=== PATIENT | female | born 1930 | race Caucasian/White ===

== ENCOUNTER 2016-07-02 02:24 | Observation (INO) | payer OTHER ==
[~2016-07-02] VITALS: Ht 149.9 cm; Wt 45.5 kg
[~2016-07-02 02:24] MED LIST: ACETAMINOPHEN325 M1 PO; ADULT LOW DOSE81 M1 PO; ALPRAZOLAM0.25 M2 PO; ALPRAZOLAM0.5 MG PO; ALPRAZOLAM1 MG PO; ARICEPT10 MG PO; ASPIR-LOW81 MG PO; Aspirin E.C. PO; CELEBREX200 MG; CELEBREX200 MG PO; CELEXA10 MG PO; DETROL LA4 MG; DETROL LA4 MG PO; LISINOPRIL 5 MG TABL; LISINOPRIL5 MG PO; LOPRESSOR25 MG PO; Maxipime IV; NIFEDIPINE ER30 MG PO; OXYCODONE-ACET1 EACH; PERCOCET 5/31 TABLET PO; SINEMET 25-1001 EACH PO; SYSTANE 0.3-0.1 EACH BOTH EYES; Tylenol Regular Stre PO; ULTRAM50 MG PO; Ultram PO; Xanax PO; Zestril,Prinivil PO
[2016-07-02 03:16] LABS: EOSINOPHIL COUNT 0.1 K/uL (0-0.3); HEMATOCRIT 38.6 % (36.0-46.0); IMMATURE GRANULOCYTE (%) 0.5 % (0.0-0.7); INSTRUMENT ABS NEUTROPHIL CT 2.6 K/uL; LYMPHOCYTE COUNT 1.1 K/uL (1.0-2.8); MCH 29.6 PG (29.0-34.0); MCHC 32.1 G/DL (30.0-36.0); MCV 92.1 FL (83-99); MEAN PLAT.VOLUME 12.7 uM^3 (9.5-12.4); MONOCYTE (%) 5.2 % (3-12); MONOCYTE COUNT 0.2 K/uL (0-0.8); NEUTROPHIL (%) 63.8 % (45-76); NEUTROPHIL COUNT 2.6 K/uL (1.8-6.4); PLATELET COUNT 141 K/uL (156-360); RBC DIS.WIDTH-CV 14.7 % (11.8-14.6); RBC DIS.WIDTH-SD 50.3 % (39-53); RED BLOOD COUNT 4.19 M/uL (3.80-5.20)
[2016-07-02 03:27] LABS: CHLORIDE 101 mEq/L (99-109); SODIUM 140 mEq/L (136-147)
[2016-07-02 03:29] LABS: GLUCOSE 86 mg/dL (70-99)
[2016-07-02 03:30] LABS: ANION GAP 10 MEQ/L (2-14)
[2016-07-02 03:33] LABS: GFR ESTIMATE (CALCULATED) > 59 mL/min/
[2016-07-02 03:34] LABS: UREA NITROGEN (BUN) 35 mg/dL (9-23)
[2016-07-02 03:37] LABS: TROP-I INTERPRETATION NEGATIVE; TROPONIN-I 0.01 ng/mL (0.0-0.30)
[2016-07-02 04:39] LABS: ADD MIUA? NO; BILIRUBIN NEGATIVE; BLOOD NEGATIVE; COLOR YELLOW ((YELLOW)); GLUCOSE (STRIP) NEGATIVE; KETONES 5; LEUKOCYTES NEGATIVE; NITRITE NEGATIVE; PROTEIN (STRIP) NEGATIVE; SPECIFIC GRAVITY 1.017 (1.000-1.030); UCUL ADDED? NO; UROBILINOGEN 0.2 MG/DL (0.2-1.0)
[2016-07-02] MEDS ORDERED: MELATONIN5 M4 PO (05:35)
[2016-07-02] MEDS ORDERED: VITAMIN D-32000 UNI2 PO (05:36)
[2016-07-02] MEDS ORDERED: METHENAMINE HIPP1 G1 PO (05:37)
[2016-07-02 08:10] VITALS: BP 152/109
[2016-07-02 11:43] VITALS: BP 136/68
[2016-07-02 15:59] VITALS: BP 135/61
== END 2016-07-02 17:04 ==
LOC: EME → EDBD 02:24 → EME 02:24 → EDOF 06:19 → 5WEST 07:31
PROVIDERS: Emergency Medicine
DX: R00.1 Bradycardia, unspecified (principal); I48.0 Paroxysmal atrial fibrillation; S00.83XA Contusion of other part of head, initial encounter; W19.XXXA Unspecified fall, initial encounter; Y92.129 Unspecified place in nursing home as the place of occurrence of the external cause; F03.90 Unspecified dementia, unspecified severity, without behavioral disturbance, psychotic disturbance, mood disturbance, and anxiety; I10 Essential (primary) hypertension; I25.10 Atherosclerotic heart disease of native coronary artery without angina pectoris; R94.31 Abnormal electrocardiogram [ECG] [EKG]; F41.9 Anxiety disorder, unspecified
CPT/HCPCS: 70450; 71010; 73080; 73560; 80048; 81003; 84484; 85025; 93005; 99281; 99285; G0378; J7030

== ENCOUNTER 2016-07-09 11:51 | Inpatient (IN) | payer OTHER ==
[~2016-07-09] VITALS: Ht 162.6 cm; Wt 66.1 kg
[2016-07-09] VITALS (9 sets, daily range): BP systolic 93–132; BP diastolic 55–87
[~2016-07-09 11:51] MED LIST changes: +MELATONIN5 M4 PO; +METHENAMINE HIPP1 G1 PO; +VITAMIN D-32000 UNI2 PO
[2016-07-09 12:35] LABS: MCH 29.8 PG (29.0-34.0); MCHC 31.8 G/DL (30.0-36.0); MCV 93.6 FL (83-99); MEAN PLAT.VOLUME 11.9 uM^3 (9.5-12.4); RBC DIS.WIDTH-CV 15.6 % (11.8-14.6)
[2016-07-09 12:39] LABS: CHLORIDE 107 mEq/L (99-109); POTASSIUM 3.8 mEq/L (3.7-5.4); SODIUM 144 mEq/L (136-147)
[2016-07-09 12:40] LABS: GLUCOSE 163 mg/dL (70-99)
[2016-07-09 12:42] LABS: INTER. NORMALIZED RATIO 1.1; PROTHROMBIN TIME 10.9 (9.2-11.2); PTT 22.1 (25-32)
[2016-07-09 12:42] LABS: ANION GAP 15 MEQ/L (2-14)
[2016-07-09 12:44] LABS: GFR ESTIMATE (CALCULATED) 56 mL/min/
[2016-07-09 12:45] LABS: UREA NITROGEN (BUN) 86 mg/dL (9-23)
[2016-07-09 12:51] LABS: TROP-I INTERPRETATION NEGATIVE; TROPONIN-I < 0.01 ng/mL (0.0-0.30)
[2016-07-09 12:57] LABS: PLATELET COUNT 190 K/uL (156-360); RED BLOOD COUNT 2.35 M/uL (3.80-5.20); WHITE BLOOD COUNT 9.3 K/uL (4.1-10.2)
[2016-07-09] MEDS ORDERED: EUCERIN CREME120 GM TP (13:51)
[2016-07-09] MEDS ORDERED: CELEXA10 MG PO (14:30)
[2016-07-09] MEDS ORDERED: CYANOCOBALAM1000 MCG PO (14:33)
[2016-07-09] MEDS ORDERED: CYANOCOBAL1000 MCG/2 IM (14:34)
[2016-07-09] MEDS ORDERED: PROCARDIA XL30 MG PO (14:36)
[2016-07-09] MEDS ORDERED: ARTIFICIAL TEAR15 M6 BOTH EYES (14:43)
[2016-07-09] MEDS ORDERED: TRAMADOL HCL50 MG PO (14:45)
[2016-07-10] VITALS (13 sets, daily range): BP systolic 105–155; BP diastolic 53–67
[2016-07-10 00:23] LABS: HEMATOCRIT 25.1 % (36.0-46.0); MCV 91.3 FL (83-99)
[2016-07-10 00:42] LABS: TROP-I INTERPRETATION NEGATIVE; TROPONIN-I < 0.01 ng/mL (0.0-0.30)
[2016-07-10 06:01] LABS: HEMATOCRIT 22.9 % (36.0-46.0); MCH 30.1 PG (29.0-34.0); MCHC 32.8 G/DL (30.0-36.0); MEAN PLAT.VOLUME 11.9 uM^3 (9.5-12.4); PLATELET COUNT 152 K/uL (156-360); RBC DIS.WIDTH-CV 15.5 % (11.8-14.6); RBC DIS.WIDTH-SD 51.3 % (39-53); RED BLOOD COUNT 2.49 M/uL (3.80-5.20); WHITE BLOOD COUNT 7.1 K/uL (4.1-10.2)
[2016-07-10 06:28] LABS: ALKALINE PHOSPHATASE 71 IU/L (3-129); ANION GAP 6 MEQ/L (2-14); ANION GAP 8 MEQ/L (2-14); CHLORIDE 110 MEQ/L (99-109); GFR ESTIMATE (CALCULATED) > 59 mL/min/; POTASSIUM 3.9 MEQ/L (3.7-5.4); SAMPLE HEMOLYSIS CHECK 0; SAMPLE HEMOLYSIS CHECK 2; SAMPLE ICTERIC CHECK 0; SAMPLE LIPEMIA CHECK 0; SODIUM 144 MEQ/L (136-147); SODIUM 145 MEQ/L (136-147); TOTAL BILIRUBIN 0.5 MG/DL (0.0-1.0); UREA NITROGEN (BUN) 60 mg/dL (9-23)
[2016-07-10 06:35] LABS: TROP-I INTERPRETATION NEGATIVE; TROPONIN-I < 0.01 ng/mL (0.0-0.30)
[2016-07-10 06:39] LABS: GLUCOSE 90 mg/dL (70-99)
[2016-07-10 06:40] LABS: GLUCOSE 88 mg/dL (70-99); POTASSIUM 4.4 MEQ/L (3.7-5.4)
[2016-07-10 08:26] LABS: HEMATOCRIT 23.4 % (36.0-46.0); MCV 92.1 FL (83-99)
[2016-07-10 13:06] LABS: HEMATOCRIT 30.3 % (36.0-46.0); MCV 89.4 FL (83-99)
[2016-07-10 19:18] LABS: HEMATOCRIT 30.2 % (36.0-46.0); MCV 85.6 FL (83-99)
[2016-07-11] VITALS (20 sets, daily range): BP systolic 94–138; BP diastolic 51–94
[2016-07-11 04:08] LABS: CHLORIDE 111 mEq/L (99-109); SODIUM 142 mEq/L (136-147)
[2016-07-11 04:11] LABS: ANION GAP 10 MEQ/L (2-14)
[2016-07-11 04:12] LABS: GLUCOSE 164 mg/dL (70-99)
[2016-07-11 04:14] LABS: GFR ESTIMATE (CALCULATED) > 59 mL/min/
[2016-07-11 04:15] LABS: UREA NITROGEN (BUN) 63 mg/dL (9-23)
[2016-07-11 04:54] LABS: METH RESISTANT S AUREUS PCR NEGATIVE (NEGATIVE)
[2016-07-11 04:59] LABS: PROBE CHECK PASS; SPECIMEN PROCESSING CONTROL PASS
[2016-07-11 08:25] LABS: HEMATOCRIT 20.8 % (36.0-46.0); MCH 28.9 PG (29.0-34.0); MCHC 33.2 G/DL (30.0-36.0); MEAN PLAT.VOLUME 11.7 uM^3 (9.5-12.4); NRBC (%) 0.3 /100 WBC (0-0); PLATELET COUNT 139 K/uL (156-360); RBC DIS.WIDTH-CV 17.2 % (11.8-14.6); RBC DIS.WIDTH-SD 53.9 % (39-53); RED BLOOD COUNT 2.39 M/uL (3.80-5.20); WHITE BLOOD COUNT 7.9 K/uL (4.1-10.2)
[2016-07-11 15:31] LABS: ADD MIUA? NO; BILIRUBIN NEGATIVE; BLOOD NEGATIVE; COLOR COLORLESS ((YELLOW)); GLUCOSE (STRIP) NEGATIVE; KETONES NEGATIVE; LEUKOCYTES NEGATIVE; NITRITE NEGATIVE; PROTEIN (STRIP) NEGATIVE; SPECIFIC GRAVITY 1.005 (1.000-1.030); UCUL ADDED? NO; UROBILINOGEN 0.2 MG/DL (0.2-1.0)
[2016-07-11 17:40] LABS: HEMATOCRIT 29.7 % (36.0-46.0); MCV 85.6 FL (83-99)
[2016-07-12 00:04] VITALS: BP 112/58
[2016-07-12 04:00] VITALS: BP 164/72
[2016-07-12 08:24] VITALS: BP 128/66
[2016-07-12 08:43] LABS: HEMATOCRIT 32.4 % (36.0-46.0); MCH 28.6 PG (29.0-34.0); MCV 84.4 FL (83-99); MEAN PLAT.VOLUME 11.4 uM^3 (9.5-12.4); NRBC (%) 0.5 /100 WBC (0-0); PLATELET COUNT 139 K/uL (156-360); RBC DIS.WIDTH-CV 15.6 % (11.8-14.6); WHITE BLOOD COUNT 8.8 K/uL (4.1-10.2)
[2016-07-12 08:55] LABS: RED BLOOD COUNT 3.84 M/uL (3.80-5.20)
[2016-07-12 09:05] LABS: ANION GAP 6 MEQ/L (2-14); CHLORIDE 112 MEQ/L (99-109); GFR ESTIMATE (CALCULATED) > 59 mL/min/; GLUCOSE 116 mg/dL (70-99); POTASSIUM 3.1 MEQ/L (3.7-5.4); SAMPLE HEMOLYSIS CHECK 0; SAMPLE ICTERIC CHECK 0; SAMPLE LIPEMIA CHECK 0; SODIUM 145 MEQ/L (136-147); UREA NITROGEN (BUN) 41 mg/dL (9-23)
[2016-07-12 11:52] VITALS: BP 120/58
[2016-07-12 16:56] VITALS: BP 122/56
[2016-07-12 20:10] VITALS: BP 126/59
[2016-07-13 05:49] VITALS: BP 134/64
[2016-07-13 08:14] VITALS: BP 174/79
[2016-07-13] MEDS ORDERED: HYOSCYAMINE0.125 MG PO ×2 (11:45→12:44)
[2016-07-13] MEDS ORDERED: LORAZEPAM0.5 MG PO ×2 (11:47→12:44)
[2016-07-13 11:54] VITALS: BP 149/78
== END 2016-07-13 13:30 | disposition hospice, home (50) | DRG 379 ==
LOC: EME 11:51 → EDOF 15:09 → 3EAST 15:09
PROVIDERS: Emergency Medicine; Hospitalist; Internal Medicine Gastroenterology; Physician Assistant; Student in an Organized Health Care Education/Training Program
PROC: 30233N1 Transfusion of Nonautologous Red Blood Cells into Peripheral Vein, Percutaneous Approach (ICD-10-PCS; principal; 2016-07-09)
DX: K92.1 Melena (principal); R09.02 Hypoxemia; F03.90 Unspecified dementia, unspecified severity, without behavioral disturbance, psychotic disturbance, mood disturbance, and anxiety; Z66 Do not resuscitate; Z51.5 Encounter for palliative care; I48.2 Chronic atrial fibrillation; I10 Essential (primary) hypertension; I25.10 Atherosclerotic heart disease of native coronary artery without angina pectoris; D64.9 Anemia, unspecified; I95.9 Hypotension, unspecified; F41.9 Anxiety disorder, unspecified; R25.1 Tremor, unspecified; Z96.659 Presence of unspecified artificial knee joint; Z88.5 Allergy status to narcotic agent
CPT/HCPCS: 70450; 71020; 71275; 74177; 80048; 80053; 80069; 81003; 84484; 85014; 85018; 85027; 85610; 85730; 86850; 86900; 86901; 86920; 87641; 93005; 94799; 99281; 99285; C9113; J1940; J7042; J7120; P9016